=== PATIENT | male | born 1960 | race Caucasian/White ===

== ENCOUNTER 2022-10-05 22:02 | Inpatient (IN) | payer OTHER ==
[2022-10-05] MEDS ORDERED: Ipratropium/Albuterol 3 ML NEB ONE (22:21)
[2022-10-05] MEDS ORDERED: methylPREDNISolone Sod Succ/PF 125 MG/2 ML VIAL ONE (22:29)
[2022-10-05 22:34] LABS: Hemoglobin 17.1 g/dL (13.5-17.5); Mean Corpuscular HGB CONC 35.6 g/dL (32.0-36.0); Mean Corpuscular Hemoglobin 32.8 pg (27.0-33.0); Mean Platelet Volume 9.2 fl (7.4-10.4); Platelet Count 353 10x3/uL (150-450); RBC Distribution Width 12.8 % (11.5-14.5); Red Blood Cell (RBC) Count 5.22 10x6/uL (4.32-5.72); White Blood Cell (WBC) Count 17.3 10x3/uL (3.5-10.5)
[2022-10-05 22:35] LABS: MDiff Complete? YES
[2022-10-05 22:47] LABS: ALT (SGPT) 29 U/L (8-55); AST (SGOT) 26 U/L (5-34); Albumin 5.1 g/dL (3.4-4.8); Alkaline Phosphatase 61 U/L (40-110); Anion Gap 25 mmol/L (10-20); BUN (Urea Nitrogen) 26 mg/dL (8.4-25.7); Bilirubin, Total 0.4 mg/dL (0.2-1.2); Calc. Creatinine Clearance 0 mL/min (70-130); Calcium 11.4 mg/dL (7.8-10.44); Carbon Dioxide 19 mmol/L (23-31); Chloride 100 mmol/L (98-107); Estimated GFR 43; Globulin 3.6 g/dL (2.4-3.5); Glucose 235 mg/dL (80-115); Potassium 4.6 mmol/L (3.5-5.1); Protein, Total 8.7 g/dL (5.8-8.1); Sodium 139 mmol/L (136-145)
[2022-10-05 23:07] LABS: CKMB 3.5 ng/mL (0-6.6)
[2022-10-05] MEDS ORDERED: Aspirin Chewable 81 MG TAB ONE (23:24)
[2022-10-05] MEDS ORDERED: Nitroglycerin 0.4 MG TAB 1 EACH ONE (23:25)
[2022-10-05] MEDS ORDERED: Furosemide 40 MG/4 ML VIAL ONE (23:25)
[2022-10-05] MEDS ORDERED: cefTRIAXone\\ROCEPHIN 1 GM VIAL ONE (23:25)
[2022-10-05 23:41] LABS: Band 1 % (5-11); Eosinophils 1 % (0-10); Lymphocytes 36 % (21-51); Monocytes 11 % (0-10); Neutrophil 38 % (42-75); Reactive Lymphocytes 13 % (0-10)
[2022-10-05 23:42] LABS: Ovalocytes SLIGHT = 2-5 cells (100X) (0-1/hpf); Platelet Morphology Comment Appears Adequate
[2022-10-06] MEDS ORDERED: Azithromycin 500 MG VIAL ONE (01:07)
[2022-10-06] MEDS ORDERED: Nitroglycerin 2% Ointment 1 INCH/1 GM Packet ONE (01:07)
[2022-10-06] MEDS ORDERED: Nitroglycerin 0.4 MG TAB (25 Tab Bottle) SL PRN ×2 (01:53→11:50)
[2022-10-06] MEDS ORDERED: Ipratropium/Albuterol 3 ML NEB NEB PRN (01:58)
[2022-10-06] MEDS ORDERED: Furosemide 40 MG/4 ML VIAL SLOW IVP SCH (02:00)
[2022-10-06] MEDS ORDERED: Dextrose 5% in Water 1,000 ML IV PRN (02:02)
[2022-10-06] MEDS ORDERED: HumaLOG 300 UNITS/3 ML VIAL SC PRN (02:02)
[2022-10-06] MEDS ORDERED: Dextrose 50% Abboject 50 ML SYRINGE SLOW IVP PRN ×2 (02:02→04:13)
[2022-10-06] MEDS ORDERED: Acetaminophen 325 MG TAB PO PRN (02:03)
[2022-10-06 02:35] LABS: #Monocytes 0.2 10x3/uL (0.0-1.1); #Neutrophils 10.1 10x3/uL (1.5-8.4); %Basophils 0.3 % (0.0-2.0); %Lymphocytes 11.3 % (18.0-47.0); %Monocytes 1.3 % (0.0-10.0); %Neutrophils 86.6 % (40.0-75.0); Hemoglobin 15.2 g/dL (13.5-17.5); Mean Corpuscular HGB CONC 35.3 g/dL (32.0-36.0); Mean Corpuscular Hemoglobin 32.7 pg (27.0-33.0); Mean Corpuscular Volume 92.5 fl (81.2-95.1); Mean Platelet Volume 9.1 fl (7.4-10.4); Platelet Count 253 10x3/uL (150-450); RBC Distribution Width 12.8 % (11.5-14.5); Red Blood Cell (RBC) Count 4.65 10x6/uL (4.32-5.72); White Blood Cell (WBC) Count 11.6 10x3/uL (3.5-10.5)
[2022-10-06 02:42] LABS: PTT 28.7 sec (22.0-33.0); Prothrombin Time 10.5 sec (9.5-12.1)
[2022-10-06 02:49] LABS: Anion Gap 29 mmol/L (10-20); BUN (Urea Nitrogen) 24 mg/dL (8.4-25.7); Calc. Creatinine Clearance 0 mL/min (70-130); Calcium 10.7 mg/dL (7.8-10.44); Carbon Dioxide 14 mmol/L (23-31); Chloride 101 mmol/L (98-107); Estimated GFR 47; Glucose 251 mg/dL (80-115); Potassium 4.5 mmol/L (3.5-5.1); Sodium 139 mmol/L (136-145)
[2022-10-06 02:50] LABS: Cardiac Risk 3.1 (Less than 4.5); Cholesterol 215 mg/dl (< 200 Desired); HDL Cholesterol 69 mg/dL (>60 Neg Risk); Triglycerides 403 mg/dL (Less than 150)
[2022-10-06 02:59] LABS: Troponin I 15.099 ng/mL (< 0.028)
[2022-10-06] MEDS ORDERED: guaiFENesin ER 600 MG TAB PO SCH ×2 (03:00→09:00)
[2022-10-06 03:27] LABS: Actual Bicarbonate (HCO3v) 19 mEq/L (22-28); Calcium, Ionized (venous) 1.24 mmol/L (1.16-1.32); Chloride (VBG) 99 mmol/L (98-106); Hemoglobin (Hb) 18.5 g/dL (13.1-17.2); Potassium (VBG) 4.51 mmol/L (3.70-5.30); Puncture Site Other Site; RapidComm Collect By LAB; Sodium 138.6 mmol/L (133-146); pH (venous) 7.29 (7.32-7.43)
[2022-10-06 03:33] LABS: SARS-CoV-2 NAA Rapid Test Not Detected (NotDetected)
[2022-10-06] MEDS ORDERED: Sodium Chloride 0.9% 1,000 ML IV PRN (04:13)
[2022-10-06] MEDS ORDERED: Electrolyte Replacement Protocol IVPB SCH (04:13)
[2022-10-06] MEDS ORDERED: NS 0.9% w/ 20 MEQ KCL 1,000 ML IV PRN (04:13)
[2022-10-06] MEDS ORDERED: Dextrose 5 %-0.45 % NaCl 1,000 ML IV PRN (04:13)
[2022-10-06] MEDS ORDERED: D5 1/2 NS w/20 mEq KCL 1,000 ML IV PRN (04:13)
[2022-10-06] MEDS ORDERED: INSULIN REGULAR IN 0.9 % NACL 100 UNIT in Premix Bag 1 BAG IVPB SCH (04:15)
[2022-10-06 05:10] LABS: Anion Gap 23 mmol/L (10-20); BUN (Urea Nitrogen) 28 mg/dL (8.4-25.7); Calc. Creatinine Clearance 65 mL/min (70-130); Calcium 11.1 mg/dL (7.8-10.44); Carbon Dioxide 20 mmol/L (23-31); Chloride 100 mmol/L (98-107); Estimated GFR 49; Glucose 238 mg/dL (80-115); Potassium 4.3 mmol/L (3.5-5.1); Sodium 139 mmol/L (136-145)
[2022-10-06 05:31] LABS: Troponin I 28.123 ng/mL (< 0.028)
[2022-10-06 05:37] VITALS: TEMP 98.2
[2022-10-06] MEDS: Nitroglycerin 2% Ointment 1 INCH/1 GM Packet TOP SCH ×2 (05:42→14:51)
[2022-10-06] MEDS ORDERED: methylPREDNISolone Sod Succ 40 MG VIAL IVP SCH (06:00)
[2022-10-06] MEDS ORDERED: Labetalol HCl 100 MG/20 ML VIAL SLOW IVP SCH ×2 (06:00→12:45)
[2022-10-06] MEDS ORDERED: Levothyroxine Sodium 125 MCG TAB PO SCH (06:00)
[2022-10-06 06:02] VITALS: BMI 30.7
[2022-10-06 06:04] VITALS: BP 183/118
[2022-10-06] MEDS ORDERED: metFORMIN 500 MG TAB PO SCH (08:00)
[2022-10-06 08:53] LABS: Anion Gap 17 mmol/L (10-20); BUN (Urea Nitrogen) 29 mg/dL (8.4-25.7); Calc. Creatinine Clearance 70 mL/min (70-130); Calcium 10.7 mg/dL (7.8-10.44); Carbon Dioxide 21 mmol/L (23-31); Chloride 103 mmol/L (98-107); Estimated GFR 52; Glucose 251 mg/dL (80-115); Potassium 4.3 mmol/L (3.5-5.1); Sodium 137 mmol/L (136-145)
[2022-10-06] MEDS ORDERED: Aspirin Chewable 81 MG TAB PO SCH (09:00)
[2022-10-06] MEDS ORDERED: Ondansetron PF 4 MG/2 ML Vial ONE (09:19)
[2022-10-06] MEDS ORDERED: Lidocaine 1% (PF) 30 ML VIAL ONE (09:19)
[2022-10-06] MEDS ORDERED: Fentanyl 100 MCG/2 ML VIAL ONE (09:19)
[2022-10-06] MEDS ORDERED: Nitroglycerin 50 MG/250 ML BOT 250 ML ONE (09:19)
[2022-10-06] MEDS ORDERED: Heparin 10,000 UNITS/ 10 ML VIAL ONE (09:19)
[2022-10-06] MEDS ORDERED: Midazolam HCl 2 mg/2 ml Vial ONE ×2 (09:20→10:54)
[2022-10-06] MEDS ORDERED: Verapamil 5 MG/2 ML VIAL ONE (09:20)
[2022-10-06] MEDS ORDERED: Adenosine 6 MG/2 ML VIAL ONE (09:20)
[2022-10-06] MEDS ORDERED: Bivalirudin 250 MG VIAL ONE (09:24)
[2022-10-06] MEDS ORDERED: Iopamidol 300 61% 100 ML VIAL FS ONE (10:05)
[2022-10-06] MEDS ORDERED: Acetaminophen/Codeine 30-300mg Tablet PO PRN ×2 (11:50)
[2022-10-06] MEDS ORDERED: Rosuvastatin 20 MG TAB PO SCH (21:00)
[2022-10-06] MEDS ORDERED: Lantus 1000 UNITS/10 ML VIAL SC SCH (21:00)
[2022-10-06] MEDS ORDERED: cefTRIAXone\\ROCEPHIN 1 GM in Sodium Chloride 0.9% 100 ML IVPB SCH (23:59)
[2022-10-07] MEDS ORDERED: Azithromycin 500 MG in Sodium Chloride 0.9% 250 ML 250 ML IVPB SCH (01:00)
[2022-10-07] MEDS ORDERED: Levothyroxine Sodium 25 MCG TAB PO SCH (06:00)
[2022-10-07] MEDS ORDERED: Levothyroxine Sodium 112 MCG TAB PO SCH (06:00)
[2022-10-07] MEDS ORDERED: CO Q-10 CAPSULE 50 MG PO SCH (09:00)
== END 2022-10-06 16:14 | disposition short-term general hospital (02) | DRG 280 ==
LOC: CSHERS 22:02 → CSHTELE 10-06 03:20 → CSHIMCU 10-06 05:26
PROVIDERS: ADMIT Family Medicine; ATTEND Internal Medicine
PROC: 4A023N7 Measurement of Cardiac Sampling and Pressure, Left Heart, Percutaneous Approach (ICD-10-PCS; principal; 2022-10-06)
PROC: B2111ZZ Fluoroscopy of Multiple Coronary Arteries using Low Osmolar Contrast (ICD-10-PCS; 2022-10-06)
PROC: B2151ZZ Fluoroscopy of Left Heart using Low Osmolar Contrast (ICD-10-PCS; 2022-10-06)
DX: I21.4 Non-ST elevation (NSTEMI) myocardial infarction (principal); E11.10 Type 2 diabetes mellitus with ketoacidosis without coma; J96.01 Acute respiratory failure with hypoxia; J45.21 Mild intermittent asthma with (acute) exacerbation; N17.9 Acute kidney failure, unspecified; J81.1 Chronic pulmonary edema; E78.5 Hyperlipidemia, unspecified; E03.9 Hypothyroidism, unspecified; I10 Essential (primary) hypertension; Z20.822 Contact with and (suspected) exposure to COVID-19; I25.10 Atherosclerotic heart disease of native coronary artery without angina pectoris; Z98.890 Other specified postprocedural states
CPT/HCPCS: 36415; 36416; 71045; 80048; 80053; 80061; 82010; 82553; 82805; 83880; 84443; 84484; 85025; 85610; 85730; 87040; 87077; 87633; 93005; 93010; 93306; 93458; 94640; 94760; 96365; 96367; 96372; 96375; 99152; 99153; C1769; C1894; J0153; J0456; J0583; J0696; J1644; J1650; J1815; J1940; J2001; J2250; J2405; J2930; J3010; J3480; J7620